=== PATIENT | female | born 1955 | race Caucasian/White ===

== ENCOUNTER 2023-08-22 06:25 | Outpatient (RCR) | payer MEDICARE, OTHER, SELFPAY | END 2023-08-22 09:09 | disposition home or self-care (01) | LOC: RPT 06:25 | PROVIDERS: ATTENDING PHYSICIAN Obstetrics & Gynecology; PRIMARYCARE PHYSICIAN Internal Medicine | DX: M62.89 Other specified disorders of muscle (principal); N81.11 Cystocele, midline; R27.8 Other lack of coordination; M62.81 Muscle weakness (generalized); N81.10 Cystocele, unspecified | CPT/HCPCS: 97530 ==

== ENCOUNTER 2023-09-26 13:18 | Outpatient (RCR) | payer MEDICARE, OTHER, SELFPAY | END 2023-09-26 23:59 | disposition home or self-care (01) | LOC: RPT 13:18 | PROVIDERS: ATTENDING PHYSICIAN Obstetrics & Gynecology; FAMILY PHYSICIAN Internal Medicine | DX: I89.0 Lymphedema, not elsewhere classified (principal); Z73.6 Limitation of activities due to disability; Z85.828 Personal history of other malignant neoplasm of skin | CPT/HCPCS: 97140; 97162; 97535 ==

== ENCOUNTER → 2024-02-03 15:12 | Outpatient (REF) | payer MEDICARE, OTHER, SELFPAY | LOC: HWRAD 15:12 | PROVIDERS: ATTENDING PHYSICIAN Obstetrics & Gynecology; FAMILY PHYSICIAN Internal Medicine | DX: Z12.31 Encounter for screening mammogram for malignant neoplasm of breast (principal); Z78.0 Asymptomatic menopausal state | CPT/HCPCS: 77063; 77067; 77080 ==

== ENCOUNTER → 2024-06-07 07:25 | Outpatient (REF) | payer MEDICARE, OTHER, SELFPAY | LOC: HWRAD 07:25 | PROVIDERS: ATTENDING PHYSICIAN Chiropractor; FAMILY PHYSICIAN Internal Medicine | DX: M99.06 Segmental and somatic dysfunction of lower extremity (principal) | CPT/HCPCS: 73502 ==

== ENCOUNTER 2024-07-27 13:13 | Outpatient (RCR) | payer MEDICARE, OTHER, SELFPAY | END 2024-07-27 23:59 | disposition home or self-care (01) | LOC: RPT 13:13 | PROVIDERS: ATTENDING PHYSICIAN Obstetrics & Gynecology; FAMILY PHYSICIAN Internal Medicine | DX: N39.3 Stress incontinence (female) (male) (principal); M79.604 Pain in right leg; Z73.6 Limitation of activities due to disability; N81.10 Cystocele, unspecified | CPT/HCPCS: 97110; 97112; 97140; 97163; 97530 ==

== ENCOUNTER 2024-08-31 06:31 | Outpatient (RCR) | payer MEDICARE, OTHER, SELFPAY | END 2024-08-31 23:59 | disposition home or self-care (01) | LOC: RPT 06:31 | PROVIDERS: ATTENDING PHYSICIAN Obstetrics & Gynecology; FAMILY PHYSICIAN Internal Medicine | DX: N39.3 Stress incontinence (female) (male) (principal); M79.604 Pain in right leg; Z73.6 Limitation of activities due to disability; N81.10 Cystocele, unspecified | CPT/HCPCS: 97014; 97110; 97112; 97140; 97530 ==

== ENCOUNTER 2024-09-16 12:08 | Outpatient (RCR) | payer MEDICARE, OTHER, SELFPAY | END 2024-09-16 23:59 | disposition home or self-care (01) | LOC: RPT 12:08 | PROVIDERS: ATTENDING PHYSICIAN Obstetrics & Gynecology; FAMILY PHYSICIAN Internal Medicine | DX: N39.3 Stress incontinence (female) (male) (principal); M79.604 Pain in right leg; Z73.6 Limitation of activities due to disability; N81.10 Cystocele, unspecified | CPT/HCPCS: 97110; 97112; 97530 ==

== ENCOUNTER → 2024-10-20 06:48 | Outpatient (REF) | payer MEDICARE, OTHER, SELFPAY | LOC: MRI 3T 06:48 | PROVIDERS: ATTENDING PHYSICIAN Psychiatry & Neurology Neurology; FAMILY PHYSICIAN Internal Medicine | DX: M25.551 Pain in right hip (principal) | CPT/HCPCS: 73721 ==

== ENCOUNTER 2024-11-24 16:02 | Outpatient (RCR) | payer MEDICARE, OTHER, SELFPAY | END 2024-11-24 23:59 | disposition home or self-care (01) | LOC: RPT 16:02 | PROVIDERS: ATTENDING PHYSICIAN Psychiatry & Neurology Neurology; FAMILY PHYSICIAN Internal Medicine | DX: M25.551 Pain in right hip (principal); Z73.6 Limitation of activities due to disability; R26.89 Other abnormalities of gait and mobility | CPT/HCPCS: 97010; 97110; 97112; 97140; 97162 ==

== ENCOUNTER 2024-12-02 15:19 | Outpatient (RCR) | payer MEDICARE, OTHER, SELFPAY | END 2024-12-03 07:40 | disposition home or self-care (01) | LOC: RPT 15:19 | PROVIDERS: ATTENDING PHYSICIAN Psychiatry & Neurology Neurology; FAMILY PHYSICIAN Internal Medicine | DX: M25.551 Pain in right hip (principal); Z73.6 Limitation of activities due to disability | CPT/HCPCS: 97110; 97140 ==

== ENCOUNTER 2024-12-28 06:19 | Outpatient (RCR) | payer MEDICARE, OTHER, SELFPAY | END 2024-12-28 23:59 | disposition home or self-care (01) | LOC: RPT 06:19 | PROVIDERS: ATTENDING PHYSICIAN Orthopaedic Surgery; FAMILY PHYSICIAN Internal Medicine | DX: Z47.1 Aftercare following joint replacement surgery (principal); M25.551 Pain in right hip; Z73.6 Limitation of activities due to disability; R26.2 Difficulty in walking, not elsewhere classified; R26.89 Other abnormalities of gait and mobility; M62.81 Muscle weakness (generalized); Z96.641 Presence of right artificial hip joint | CPT/HCPCS: 97110; 97162 ==

== ENCOUNTER 2025-01-27 14:05 | Outpatient (RCR) | payer MEDICARE, OTHER, SELFPAY | END 2025-01-27 23:59 | disposition home or self-care (01) | LOC: RPT 14:05 | PROVIDERS: ATTENDING PHYSICIAN Orthopaedic Surgery; FAMILY PHYSICIAN Internal Medicine | DX: Z47.1 Aftercare following joint replacement surgery (principal); M25.551 Pain in right hip; Z73.6 Limitation of activities due to disability; R26.2 Difficulty in walking, not elsewhere classified; R26.89 Other abnormalities of gait and mobility; M62.81 Muscle weakness (generalized); Z96.641 Presence of right artificial hip joint | CPT/HCPCS: 97010; 97110; 97112; 97140; 97530 ==

== ENCOUNTER → 2025-02-03 12:51 | Outpatient (REF) | payer MEDICARE, OTHER, SELFPAY | LOC: HWWDC 12:51 | PROVIDERS: ATTENDING PHYSICIAN Obstetrics & Gynecology; FAMILY PHYSICIAN Internal Medicine; REFERRING PHYSICIAN Student in an Organized Health Care Education/Training Program | DX: Z12.31 Encounter for screening mammogram for malignant neoplasm of breast (principal); M81.0 Age-related osteoporosis without current pathological fracture | CPT/HCPCS: 72072 ==

== ENCOUNTER 2025-02-24 14:06 | Outpatient (RCR) | payer MEDICARE, OTHER, SELFPAY | END 2025-02-24 23:59 | disposition home or self-care (01) | LOC: RPT 14:06 | PROVIDERS: ATTENDING PHYSICIAN Orthopaedic Surgery; FAMILY PHYSICIAN Internal Medicine | DX: Z47.1 Aftercare following joint replacement surgery (principal); M25.551 Pain in right hip; Z73.6 Limitation of activities due to disability; R26.2 Difficulty in walking, not elsewhere classified; R26.89 Other abnormalities of gait and mobility; M62.81 Muscle weakness (generalized); Z96.641 Presence of right artificial hip joint | CPT/HCPCS: 97010; 97110; 97112; 97530 ==

== ENCOUNTER 2025-03-17 14:12 | Outpatient (RCR) | payer MEDICARE, OTHER, SELFPAY | END 2025-03-17 23:59 | disposition home or self-care (01) | LOC: RPT 14:12 | PROVIDERS: ATTENDING PHYSICIAN Orthopaedic Surgery; FAMILY PHYSICIAN Internal Medicine | DX: Z47.1 Aftercare following joint replacement surgery (principal); M25.551 Pain in right hip; Z73.6 Limitation of activities due to disability; R26.2 Difficulty in walking, not elsewhere classified; R26.89 Other abnormalities of gait and mobility; M62.81 Muscle weakness (generalized); Z96.641 Presence of right artificial hip joint | CPT/HCPCS: 97010; 97110; 97112 ==